=== PATIENT | male | born 1980 | race Caucasian/White ===

== ENCOUNTER 2023-01-21 19:01 | Emergency (ER) | payer OTHER ==
[~2023-01-21] VITALS: Ht 182.9 cm; Wt 81.6 kg
[2023-01-21 19:43] VITALS: BP 124/92; TEMP 98.7
[2023-01-21] MEDS ORDERED: oxyCODONE/APAP (5/325 MG) 1 UDTAB TABLET ONE (19:56)
[2023-01-21] MEDS ORDERED: LIDOCAINE 5% (PATCH) 1 EA PATCH TP ONE (19:56)
[2023-01-21] MEDS ORDERED: predniSONE 20 MG TABLET ONE (19:57)
[2023-01-21] MEDS ORDERED: KETOROLAC TROMETHAMINE INJ 30 MG/ML VIAL ONE (19:57)
[2023-01-21] MEDS ORDERED: predniSONE 50 MG TABLET PO ONE (20:00)
[2023-01-21] MEDS ORDERED: LIDOCAINE 5% (PATCH) 1 EA PATCH TP SCH (20:00)
[2023-01-21] MEDS ORDERED: oxyCODONE/APAP (5/325 MG) 1 UDTAB TABLET PO ONE (20:00)
[2023-01-21] MEDS ORDERED: KETOROLAC TROMETHAMINE INJ 30 MG/ML VIAL IM ONE (20:00)
[2023-01-21] MEDS ORDERED: OXYC-128 PO (22:08)
[2023-01-21] MEDS ORDERED: METH4TAB3 PO (22:08)
[2023-01-21 22:50] VITALS: O2SAT 100
== END 2023-01-21 22:51 | disposition home or self-care (01) ==
LOC: ER 19:01
DX: M54.41 Lumbago with sciatica, right side (principal); Z79.899 Other long term (current) drug therapy; Z98.890 Other specified postprocedural states
CPT/HCPCS: 99284; 96372; J7512; J1885